=== PATIENT | male | born 1975 | race Caucasian/White ===

== ENCOUNTER → 2019-06-23 | Outpatient (CLI) | payer BC ==
--- NOTE | 2019-06-23 09:31 | REP ---
CHEST X-RAY: TWO VIEWS. HISTORY: Wheezing and cough. COMPARISON STUDY: February 14, 2008. FINDINGS: A subtle pattern of increased markings in the right base overlying the liver on the PA chest and overlying the spine on the lateral view consistent with a subtle infiltrate in the right lower lobe. There is a zone of linear plate-like atelectasis in the left base. Lung reaves are otherwise clear. Cardiomediastinal silhouette is unremarkable. No bony abnormality is seen. IMPRESSION: Suspect subtle infiltrate right lower lobe. Linear plate-like atelectasis left base. Electronically Signed by Kunal Blackburn MD 06/23/2019 10:40 A
== END ==
LOC: M ADAMS 09:01
PROVIDERS: ATTEND Physician Assistant
DX: R06.2 Wheezing (principal); R05 Cough; R91.8 Other nonspecific abnormal finding of lung field
CPT/HCPCS: 71046; 87486; 87581; 87633; 87798; U0002

== ENCOUNTER → 2019-06-23 | Outpatient (CLI) | payer BC ==
[2019-06-23 12:42] LABS: BASO % 0.2 % (0.0-1.0); EOS # 0.2 10^3/uL (0.0-0.5); EOS % 1.2 % (0.0-3.0); HEMATOCRIT 43.3 % (42.0-52.0); HEMOGLOBIN 14.2 g/dl (13.5-17.5); LYMPH # 1.4 10^3/uL (1.5-5.0); LYMPH % 8.2 % (24.0-44.0); MEAN CORPUSCULAR HEMOGLOBIN 29.3 pg (27.0-33.0); MEAN CORPUSCULAR HGB CONC 32.8 g/dl (32.0-36.5); MEAN CORPUSCULAR VOLUME 89.5 fl (80.0-96.0); MONO # 1.1 10^3/uL (0.0-0.8); NEUTROPHILS # 14.7 10^3/uL (1.5-8.5); PLATELET COUNT, AUTOMATED 317 10^3/uL (150-450); RED BLOOD COUNT 4.84 10^6/uL (4.30-6.10); WHITE BLOOD COUNT 17.5 10^3/uL (4.0-10.0)
[2019-06-23 12:45] LABS: ALBUMIN 3.3 GM/DL (3.2-5.2); ALT/SGPT 61 U/L (12-78); BILIRUBIN,TOTAL 0.6 MG/DL (0.2-1.0); BLOOD UREA NITROGEN 9 MG/DL (7-18); C REACTIVE PROTEIN QUANTITATIV 2.62 MG/DL (0.00-0.30); CALCIUM LEVEL 8.9 MG/DL (8.5-10.1); CARBON DIOXIDE LEVEL 29 MEQ/L (21-32); CHLORIDE LEVEL 105 MEQ/L (98-107); CREATININE FOR GFR 1.02 MG/DL (0.70-1.30); GLOMERULAR FILTRATION RATE > 60.0 (>60); GLUCOSE, FASTING 97 MG/DL (70-100); POTASSIUM SERUM 4.7 MEQ/L (3.5-5.1); SODIUM LEVEL 137 MEQ/L (136-145); TOTAL PROTEIN 6.7 GM/DL (6.4-8.2)
== END ==
LOC: M LABDRWAD 09:24
PROVIDERS: ATTEND Physician Assistant
DX: R05 Cough (principal); R06.2 Wheezing

== ENCOUNTER → 2019-07-01 | Outpatient (CLI) | payer BC ==
--- NOTE | 2019-07-02 03:28 | REP ---
Clinical: Follow up pneumonia . Comparison: 06/23/2019 . Technique: PA and lateral. Findings: The mediastinum and cardiac silhouette are normal. The lung reaves are clear and without acute consolidation, effusion, or pneumothorax. Previous subtle basilar infiltrate appears to have resolved. The skeletal structures are intact and normal. Impression: 1. No acute cardiopulmonary process. Electronically Signed by Ivan Colón MD 07/02/2019 03:19 A
== END ==
LOC: M WUC 09:38
PROVIDERS: ATTEND Internal Medicine
DX: J18.9 Pneumonia, unspecified organism (principal)

== ENCOUNTER → 2020-03-23 | Outpatient (CLI) | payer BC, OTHER ==
[~2020-03-23] MED LIST: AMLO1TAB25 PO; ATOR1TAB21 PO
--- NOTE | 2020-03-23 11:40 | REP ---
INDICATION: COUGH COMPARISON: 10/05/2019 TECHNIQUE: PA and lateral. FINDINGS: Evidence for prior sternotomy and aortic valve repair. Cardiac silhouette is normal. The lung reaves are clear and without acute consolidation, effusion, or pneumothorax. The skeletal structures are intact and normal. IMPRESSION: No acute cardiopulmonary process. <Electronically signed by Ivan Colón > 03/23/20 [id number]
== END ==
LOC: M WUC 11:23
PROVIDERS: ATTEND Internal Medicine
DX: R05 Cough (principal)

== ENCOUNTER → 2020-09-27 | Outpatient (CLI) | payer BC, OTHER ==
[2020-09-27 13:09] LABS: ALBUMIN 3.8 GM/DL (3.2-5.2); ALT/SGPT 37 U/L (12-78); BILIRUBIN,TOTAL 0.6 MG/DL (0.2-1.0); BLOOD UREA NITROGEN 13 MG/DL (7-18); CALCIUM LEVEL 8.4 MG/DL (8.5-10.1); CARBON DIOXIDE LEVEL 27 MEQ/L (21-32); CHLORIDE LEVEL 104 MEQ/L (98-107); CHOLESTEROL LEVEL 212 MG/DL (<200); CHOLESTEROL RISK RATIO 4.818 (<5); CREATININE FOR GFR 0.97 MG/DL (0.70-1.30); GLOMERULAR FILTRATION RATE > 60.0 (>60); GLUCOSE, FASTING 88 MG/DL (70-100); HDL CHOLESTEROL 44 MG/DL (>40); LDL CHOLESTEROL 135 MG/DL (<100); NON-HDL-C 168 MG/DL; POTASSIUM SERUM 4.8 MEQ/L (3.5-5.1); SODIUM LEVEL 137 MEQ/L (136-145); TRIGLYCERIDES LEVEL 166 MG/DL (<150)
== END ==
LOC: M WUC 09:52
PROVIDERS: ATTEND Nurse Practitioner Family
DX: E78.5 Hyperlipidemia, unspecified (principal)

== ENCOUNTER → 2023-09-02 | Outpatient (CLI) | payer BC | LOC: M WHC 11:21 | PROVIDERS: ATTEND Internal Medicine Cardiovascular Disease | DX: E78.5 Hyperlipidemia, unspecified (principal); I35.9 Nonrheumatic aortic valve disorder, unspecified; I10 Essential (primary) hypertension; R09.89 Other specified symptoms and signs involving the circulatory and respiratory systems; I65.23 Occlusion and stenosis of bilateral carotid arteries ==

== ENCOUNTER → 2024-07-27 | Outpatient (CLI) | payer BC ==
[~2024-07-27] MED LIST changes: +ISOVUE-370 76% 100ML VIAL As Ordered ONE
[2024-07-27 18:13] LABS: ALBUMIN 3.9 G/DL (3.2-5.2); ALKALINE PHOSPHATASE 76 U/L (40-129); ALT/SGPT 41 U/L (7.0-40); AST/SGOT 27 U/L (<34); BILIRUBIN,TOTAL 0.5 MG/DL (0.3-1.2); BLOOD UREA NITROGEN 9 MG/DL (9-23); CARBON DIOXIDE LEVEL 31 MMOL/L (20-31); CHLORIDE LEVEL 104 MMOL/L (98-107); CREATININE FOR GFR 0.97 MG/DL (0.70-1.30); GLOMERULAR FILTRATION RATE > 90.0 (>56); GLUCOSE, FASTING 93 MG/DL (60-100); POTASSIUM SERUM 4.4 MMOL/L (3.5-5.1); SODIUM LEVEL 141 MMOL/L (136-145); TOTAL PROTEIN 6.8 G/DL (5.7-8.2)
== END ==
LOC: M RAD 16:49
PROVIDERS: ATTEND Thoracic Surgery (Cardiothoracic Vascular Surgery)
DX: E78.5 Hyperlipidemia, unspecified (principal); R79.89 Other specified abnormal findings of blood chemistry; I71.010 Dissection of ascending aorta; I71.21 Aneurysm of the ascending aorta, without rupture; J84.10 Pulmonary fibrosis, unspecified; K80.20 Calculus of gallbladder without cholecystitis without obstruction
CPT/HCPCS: 36415; 71275; 80053; Q9967

== ENCOUNTER → 2024-12-24 | Outpatient (CLI) | payer BC ==
[~2024-12-24] MED LIST changes: +ISOVUE-370 76% 100 ML VIAL As Ordered ONE; -ISOVUE-370 76% 100ML VIAL As Ordered ONE
== END ==
LOC: M RAD 17:02
PROVIDERS: ATTEND Thoracic Surgery (Cardiothoracic Vascular Surgery)
DX: I71.010 Dissection of ascending aorta (principal)
CPT/HCPCS: 71275; Q9967